=== PATIENT | female | born 1980 | race African-American/Black ===

== ENCOUNTER 2019-03-20 10:08 | Emergency (ER) | payer MEDICAID ==
[~2019-03-20] VITALS: Ht 157.5 cm; Wt 82.6 kg
[2019-03-20] MEDS ORDERED: SODIUM CHLORIDE 0.9% 1,000 ML IV ONE (10:41)
[2019-03-20 11:34] LABS: CLARITY URINE TURBID (CLEAR); COLOR URINE YELLOW (YELLOW); KETONES URINE TRACE (NEGATIVE); LEUKOCYTE ESTERASE URINE 1+ (NEGATIVE); NITRITE URINE NEGATIVE (NEGATIVE); OCCULT BLOOD URINE 3+ (NEGATIVE); PH URINE 6.5 (4.5-8.0); PROTEIN URINE 1+ (NEGATIVE); SPECIFIC GRAVITY URINE 1.027 (1.005-1.030)
[2019-03-20 12:15] LABS: *AMPHETAMINES SCREEN URINE NEGATIVE (NEGATIVE); *BARBITURATES SCREEN URINE NEGATIVE (NEGATIVE); *COCAINE SCREEN URINE NEGATIVE (NEGATIVE)
[2019-03-20] MEDS ORDERED: CEFTRIAXONE SODIUM 500 MG/VIAL IM ONE (12:15)
[2019-03-20] MEDS ORDERED: AZITHROMYCIN 500 MG TABLET PO ONE (12:15)
[2019-03-20 12:16] LABS: *BENZODIAZEPINES SCREEN URINE NEGATIVE (NEGATIVE); METHADONE URINE SCREEN NEGATIVE (NEGATIVE); OPIATES URINE SCREEN NEGATIVE (NEGATIVE); PHENCYCLIDINE URINE SCREEN NEGATIVE (NEGATIVE)
[2019-03-20 12:17] LABS: CANNABINOID URINE SCREEN NEGATIVE (NEGATIVE)
[2019-03-20 12:50] VITALS: BP 134/89
== END 2019-03-20 13:10 | disposition left against medical advice (07) ==
LOC: ER 10:08
DX: N39.0 Urinary tract infection, site not specified (principal); D25.9 Leiomyoma of uterus, unspecified; R10.2 Pelvic and perineal pain; Z20.2 Contact with and (suspected) exposure to infections with a predominantly sexual mode of transmission; Z88.3 Allergy status to other anti-infective agents
CPT/HCPCS: 76830; 76856; 80305; 81003; 81025; 87086; 99284; J0696; J7030

== ENCOUNTER 2019-09-10 20:46 | Emergency (ER) | payer BC, MEDICAID ==
[~2019-09-10] VITALS: Ht 154.9 cm; Wt 63.0 kg
[2019-09-10 20:53] VITALS: BP 123/82
[2019-09-10] MEDS ORDERED: CEFTRIAXONE SODIUM 250 MG/VIAL IM ONE (23:00)
[2019-09-10] MEDS ORDERED: AZITHROMYCIN 500 MG TABLET PO ONE (23:00)
[2019-09-10 23:06] LABS: CLARITY URINE TURBID (CLEAR); KETONES URINE NEGATIVE (NEGATIVE); LEUKOCYTE ESTERASE URINE TRACE (NEGATIVE); NITRITE URINE NEGATIVE (NEGATIVE); OCCULT BLOOD URINE TRACE (NEGATIVE); PROTEIN URINE NEGATIVE (NEGATIVE); SPECIFIC GRAVITY URINE 1.013 (1.005-1.030); UROBILINOGEN URINE 0.2 E.U./dL (0.2-1.0)
[2019-09-10 23:15] LABS: COLOR URINE PALE YELLOW (YELLOW)
== END 2019-09-10 23:44 | disposition home or self-care (01) ==
LOC: ER 20:46
DX: A64 Unspecified sexually transmitted disease (principal); Z88.1 Allergy status to other antibiotic agents; R30.9 Painful micturition, unspecified
CPT/HCPCS: 81003; 81025; 96372; 99283; J0696

== ENCOUNTER 2024-05-13 17:30 | Emergency (ER) | payer BC, MEDICAID ==
[~2024-05-13] VITALS: Ht 154.9 cm; Wt 82.0 kg
[2024-05-13 17:47] VITALS: O2SAT 100
[2024-05-13 17:48] VITALS: BP 136/79; PULSE 94; RESP 16; O2SAT 100
[2024-05-13 19:10] LABS: BASOPHILS % 2.5 % (0.0-2.0); EOSINOPHILS % 4.1 % (0.0-5.0); HEMATOCRIT. 31.5 % (36.0-48.0); HEMOGLOBIN. 9.6 g/dL (12.0-16.0); LYMPHOCYTES % 44.5 % (20.0-50.0); MEAN CORPUSCULAR HEMOGLOBIN 20.3 pg (28.0-32.0); MEAN CORPUSCULAR HGB CONC 30.5 g/dL (31.0-37.0); MEAN CORPUSCULAR VOLUME 66.6 fL (81.0-99.0); MEAN PLATELET VOLUME 9.4 fl (7.4-10.4); MONOCYTES % 9.5 % (2.0-8.0); NEUTROPHILS % 39.4 % (40.0-76.0); PLATELET 314 x1000/uL (130-400); RED BLOOD CELL COUNT 4.72 mill/uL (4.2-5.4); RED CELL DISTRIBUTION WIDTH 18.7 % (11.6-14.6); WHITE BLOOD COUNT 6.1 x1000/uL (4.5-11.0)
[2024-05-13 19:18] LABS: CARBON DIOXIDE 26 mEq/L (21-32); CHLORIDE 107 mEq/L (98-107); POTASSIUM 4.1 mEq/L (3.5-5.1); SODIUM 141 mEq/L (136-145)
[2024-05-13 19:19] LABS: CALCIUM 9.9 mg/dL (8.7-10.4)
[2024-05-13 19:21] LABS: ADD RBC MORPHOLOGY YES; DIFFERENTIAL COMMENT 1
[2024-05-13 19:24] LABS: CREATININE 0.8 mg/dL (0.6-1.0); GLUCOSE 111 mg/dL (70-105); UREA NITROGEN BLOOD 11 mg/dL (9-23)
[2024-05-13 19:25] LABS: ALANINE AMINOTRANSFERASE 23 IU/L (10-49); ASPARTATE AMINOTRANSFERASE 20 IU/L (<34)
[2024-05-13 19:26] LABS: ALBUMIN 4.1 g/dL (3.2-4.8); BILIRUBIN TOTAL 0.4 mg/dL (0.1-1.0); PROTEIN TOTAL 7.1 g/dL (6.0-8.3); TROPONIN I HIGH SENSITIVITY < 4 ng/L (3.0-34)
[2024-05-13] MEDS: CEFTRIAXONE SODIUM 500MG VIAL IM ONE (19:33)
[2024-05-13] MEDS: PENICILLIN G BENZATHINE 2,400,000 UNITS/4ML SYR IM ONE (21:05)
[2024-05-13 21:10] LABS: CLARITY URINE CLOUDY (CLEAR); COLOR URINE YELLOW (YELLOW); GLUCOSE URINE NEGATIVE (NEGATIVE); KETONES URINE NEGATIVE (NEGATIVE); LEUKOCYTE ESTERASE URINE 1+ (NEGATIVE); NITRITE URINE NEGATIVE (NEGATIVE); OCCULT BLOOD URINE NEGATIVE (NEGATIVE); PH URINE 7.5 (4.5-8.0); PROTEIN URINE NEGATIVE (NEGATIVE); SPECIFIC GRAVITY URINE 1.024 (1.005-1.030)
[2024-05-13] MEDS ORDERED: DOXY100T2 MT (21:21)
[2024-05-13] MEDS ORDERED: METR70GE27 VG (21:21)
[2024-05-13 21:24] LABS: HCG SCREEN NEGATIVE
[2024-05-13 22:00] LABS: BACTERIA URINE 3+; RBC URINE 0-2 /hpf (0-2); SQUAMOUS EPITHELIAL CELL URINE 1+ /lpf (RARE/1+)
[2024-05-13 22:01] LABS: CALCIUM OXALATE CRYSTALS URINE 1+ /lpf
[2024-05-13 22:10] LABS: ANISOCYTOSIS 1+; HYPOCHROMASIA 2+; MICROCYTOSIS 3+; PLATELET ESTIMATE NORMAL
[2024-05-13 22:11] LABS: OVALOCYTES 1+
[2024-05-16 05:10] LABS: CHLAMYDIA TRACHOMATIS NAA Negative (Negative); NEISSERIA GONORRHOEAE NAA Negative (Negative)
== END 2024-05-13 21:36 | disposition home or self-care (01) ==
LOC: ER 17:30
DX: R07.89 Other chest pain (principal); D64.9 Anemia, unspecified; Z11.3 Encounter for screening for infections with a predominantly sexual mode of transmission; Z88.1 Allergy status to other antibiotic agents
CPT/HCPCS: 99285; 71045; 86592; 87491; 87591; 80053; 81003; 84703; 85025; 84484; 36415; 93005; 96372; J0696; J0561